=== PATIENT | female | born 1960 | race Two or more races ===

== ENCOUNTER 2020-04-10 01:10 | Inpatient (IN) | payer MEDICAID ==
[~2020-04-10] VITALS: Ht 167.6 cm; Wt 81.6 kg
[2020-04-10] VITALS (7 sets, daily range): BP systolic 106–147; BP diastolic 63–94
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
--- NOTE | 2020-04-10 01:25 | NUR ---
ED Nurse Note: ERMD at bedside.
--- NOTE | 2020-04-10 01:27 | Emergency Room Report ---
History of Present Illness General Chief Complaint: Nausea, Vomiting, and Diarrhea Source: Patient Present Illness HPI 60-year-old -Ang[place] female with past medical history of hepatitis C (from previous blood transfusion), anemia, (last blood transfusion in 1994) presents by ambulance with chief complaint of coffee-ground emesis x3 days. 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 Also endorses dark bloody stools for the past 3 days. She denies trauma, chest pain, recent endoscopy/colonoscopy, blood thinners, headache, back pain, hemoptysis, cough, fevers, chills, dysuria, hematuria or any other symptoms She denies alcohol abuse or IV drug use The patient's symptoms were gradual onset, severity was moderate, duration since 3 days. Quality: Coffee-ground Past medical history: Hepatitis C, anemia Past surgical history: Hysterectomy, bilateral hip ORIF Smoking: Denies Alcohol use: Denies Drug use: Denies Review of systems: CONST: No fevers ++ chills, No night sweats PULMONARY: No productive cough, No shortness of breath CARDIAC: No chest pain, No palpitations GI: ++ vomiting, No diarrhea , ++ melena_denies_BRBPR : No dysuria, No hematuria, No discharge NEURO: No new_focal_weakness_or_numbness, No confusion, No vision changes 14 point Review of Systems is otherwise negative except per HPI Physical Exam: GENERAL: Awake_alert_ nontoxic, no acute distress Spo2 98% on RA -normal. Shirt is covered in coffee-ground emesis Actively vomiting clear substance ~100ml EYES: Scleral icterus. Extraocular muscles are intact. Conjunctivae clear. Lids without swelling ENT: External nose and ear normal_in_appearance. Oropharynx clear. Head_atraumatic, Moist_oral_mucosa NECK: No JVD. No meningismus. No thyromegaly. Supple. Trachea midline RESP: Normal respiratory effort. Symmetric rise. No stridor. Clear_to_auscultation_No_rales_No_wheezes CARDIAC: Tachycardic and regular rhytm. No_significant pedal edema. ABDOMEN: Soft. Nondistended. Nontender_No_rebound_or_guarding. MSK: Normal muscle tone, without rigidity. Extremities without asymmetric deformity or swelling. No asterixis SKIN: Warm and dry. No visible cyanosis or pallor NEUROLOGIC: Alert, oriented x3. Motor_and_sensation_grossly_intact. No truncal ataxia. Gait_normal Psych: Normal mood and affect, normal judgment and insight - COORDINATION OF CARE Case was discussed with: Patient , Patient's Physician Any labs and imaging that were ordered were interpreted as part of the medical decision making: Medical Decision Making/Plan: Differential diagnosis includes upper GI bleed from bleeding peptic ulcer, bleeding duodenal ulcer, gastritis, esophageal varices, gastric varices, among others. Given the possibility of a bleeding peptic ulcer, Protonix IV was immediately started. Because of hx of Hep C, the patient is at risk for portal hypertension and varices from cirrhosis, so octreotide IV was also started and Ceftriaxone IV also given. Because the patients hemoglobin is stable, emergent transfusion was not started; however, the patient will need to be admitted for serial hemoglobin checks, and if downtrending, transfusion may be indicated at a later time. The patient does not require any emergent anticoagulation reversal at this time point. CT shows hiatal hernia. No abdominal free fluid. Doubt incarcerated hernia. Patient is protecting their airway, no active vomiting, no need for NG tube or intubation at this time. The patient is currently hemodynamically stable, and stable for transfer to the floor at this time. @[address] Thomas, and reviewed the patients presentation, workup, results, and treatment. They will admit the patient for further care and evaluation, and assume care of the patient at this time. 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 COVID-19 Screening: Negative COVID-19 COVID-19 Testing Source: 04/04/20 Patient History Last Menstrual Period: n/a Nursing Documentation-[facility] Past Medical History: No History, Except For Hx Asthma: Yes - asthma Physical Exam Vital Signs Date Time Temp Pulse Resp B/P (MAP) Pulse Ox O2 Delivery O2 Flow Rate FiO2 04/10/20 01:10 97.5 108 18 140/94 (109) 98 Room Air Sp02 EP Interpretation: reviewed, normal Medical Decision Making Diagnostic Impression: Primary Impression: GI bleed Additional Impressions: Hepatitis C Anemia Hematemesis Melena Kidney stones Hiatal hernia EKG Diagnostic Results THA [facility] 12-lead EKG (interpreted by me) Time: 013 Indication: Rhythm analysis Tracing visualized and Interpreted by me. Rhythm: Normal sinus rhythm Rate: 100 bpm QTc: 402 Morphology: No_significant_ST_elevations_or_depressions, No STEMI Impression: Normal_sinus_rhythm_without_significant_abnormality Rhythm Strip Diag. Results Rhythm Strip Time: 01:31 EP Interpretation: yes Rate: 98 Rhythm: NSR, no PVC's, no ectopy CT/MRI/US Diagnostic Results CT/MRI/US Diagnostic Results : Impression CT Abdomen and Pelvis Without Intravenous Contrast FINDINGS: Lung bases: Mild atelectasis at the lung bases. Mediastinum: Moderate hiatal hernia, which contains a proximal stomach. ABDOMEN: Liver: Unremarkable. Gallbladder and bile ducts: Unremarkable. No calcified stones. No ductal dilation. Pancreas: Unremarkable. No ductal dilation. Spleen: Unremarkable. No splenomegaly. Adrenals: Unremarkable. No mass. Kidneys and ureters: Multiple, small nonobstructing right mid and lower pole renal calculi, measuring 4 mm, 3 mm, and 1 mm. No hydronephrosis. No obstructive uropathy. Stomach and bowel: Noncontrast exam and therefore evaluation for gastrointestinal hemorrhage is limited. There is hyperdensity within the gastric lumen which may represent hyperdense ingested contents; however, blood products cannot be excluded, given the history of hematemesis. Consider correlation with upper GI endoscopy. Diverticulosis, without acute diverticulitis. No small bowel obstruction. PELVIS: Appendix: Normal appendix. Bladder: Unremarkable. No stones. Reproductive: Unremarkable as visualized. ABDOMEN and PELVIS: Intraperitoneal space: Unremarkable. No free air. No significant fluid collection. Bones/joints: Status post open reduction internal fixation of the bilateral hips with intramedullary rods in the bilateral femurs. Bilateral lumbosacral tra nsitional vertebrae. Diffuse osseous demineralization and degenerative changes of the spine. Soft tissues: Unremarkable. Vasculature: Unremarkable. No abdominal aortic aneurysm. Lymph nodes: Unremarkable. No enlarged lymph nodes. IMPRESSION: 1. Noncontrast exam and therefore evaluation for gastrointestinal hemorrhage is limited. There is hyperdensity within the gastric lumen which may represent hyperdense ingested contents; however, blood products cannot be excluded, given the history of hematemesis. Consider correlation with upper GI endoscopy. 2. Moderate hiatal hernia, which contains a proximal stomach. 3. Multiple, small nonobstructing right mid and lower pole renal calculi, measuring 4 mm, 3 mm, and 1 mm. No hydronephrosis. No obstructive uropathy. 4. Diverticulosis, without acute diverticulitis. No small bowel obstruction. Normal appendix. 5. Status post open reduction internal fixation of the bilateral hips with intramedullary rods in the bilateral femurs. Reevaluation Time: 03:00 Last Vital Signs Date Time Temp Pulse Resp B/P (MAP) Pulse Ox O2 Delivery O2 Flow Rate FiO2 04/10/20 01:10 97.5 108 18 140/94 (109) 98 Room Air Status: improved Disposition: ADMITTED INPATIENT Admit Decision Time: 03:00 Condition: Stable Daria Gray D.O. Apr 10, 2020 01:27
[2020-04-10] MEDS ORDERED: Octreotide Acetate 500 MCG in Sodium Chloride 499 ML IV SCH (01:30)
[2020-04-10] MEDS ORDERED: SandoSTATIN 50mcg Inj IVP ONE (01:30)
[2020-04-10] MEDS ORDERED: Pantoprazole Inj IV ONE (01:30)
[2020-04-10] MEDS ORDERED: cefTRIAXone 1 GM in NS 55 ML IV ONE (01:30)
--- NOTE | 2020-04-10 01:30 | NUR ---
ED Nurse Note: Pt taken to CT
--- NOTE | 2020-04-10 02:00 | NUR ---
ED Nurse Note: pt returned from CT in stable condition.
[2020-04-10 02:29] LABS: HEMATOCRIT 40.1 % (37.0-47.0); HEMOGLOBIN 14.6 G/DL (12.0-16.0); MEAN CORPUSCULAR VOLUME 84 FL (80-99); PLATELET COUNT 226 K/UL (150-450); RED BLOOD COUNT 4.79 M/UL (4.20-5.40); RED CELL DISTRIBUTION WIDTH 13.4 % (11.6-14.8); WHITE BLOOD COUNT 5.9 K/UL (4.8-10.8)
--- NOTE | 2020-04-10 02:32 | NUR ---
ED Nurse Note: IV line iniated, blood drawn and sent to lab. All medications administered, pt tolerated well no ss of distress noted. will continue to monitor.
[2020-04-10 02:42] LABS: ANION GAP 6 mmol/L (5-15); BLOOD UREA NITROGEN 15 mg/dL (7-18); CALCIUM 8.6 MG/DL (8.5-10.1); CARBON DIOXIDE 29 MMOL/L (21-32); CHLORIDE 105 MMOL/L (98-107); CREATININE 0.9 MG/DL (0.55-1.30); POTASSIUM 4.2 MMOL/L (3.5-5.1); SODIUM 140 MMOL/L (136-145)
[2020-04-10 02:47] LABS: ALANINE AMINOTRANSFERASE 24 U/L (12-78); ALBUMIN 3.5 G/DL (3.4-5.0); ALBUMIN/GLOBULIN RATIO 0.9 (1.0-2.7); ALKALINE PHOSPHATASE 91 U/L (46-116); ASPARTATE AMINO TRANSFERASE 25 U/L (15-37); BILIRUBIN,TOTAL 0.6 MG/DL (0.2-1.0)
--- NOTE | 2020-04-10 02:56 | Diagnostic Imaging Report ---
EXAM: CT Abdomen and Pelvis Without Intravenous Contrast CLINICAL HISTORY: ABD PAIN TECHNIQUE: Axial computed tomography images of the abdomen and pelvis without intravenous contrast. CTDI is 8.60 mGy and DLP is 442.60 mGy-cm. One or more of the following dose reduction techniques were used: automated exposure control, adjustment of the mA and/or kV according to patient size, use of iterative reconstruction technique. COMPARISON: No relevant prior studies available. FINDINGS: Lung bases: Mild atelectasis at the lung bases. Mediastinum: Moderate hiatal hernia, which contains a proximal stomach. ABDOMEN: Liver: Unremarkable. Gallbladder and bile ducts: Unremarkable. No calcified stones. No ductal dilation. Pancreas: Unremarkable. No ductal dilation. Spleen: Unremarkable. No splenomegaly. Adrenals: Unremarkable. No mass. Kidneys and ureters: Multiple, small nonobstructing right mid and lower pole renal calculi, measuring 4 mm, 3 mm, and 1 mm. No hydronephrosis. No obstructive uropathy. Stomach and bowel: Noncontrast exam and therefore evaluation for gastrointestinal hemorrhage is limited. There is hyperdensity within the gastric lumen which may represent hyperdense ingested contents; however, blood products cannot be excluded, given the history of hematemesis. Consider correlation with upper GI endoscopy. Diverticulosis, without acute diverticulitis. No small bowel obstruction. PELVIS: Appendix: Normal appendix. Bladder: Unremarkable. No stones. Reproductive: Unremarkable as visualized. ABDOMEN and PELVIS: Intraperitoneal space: Unremarkable. No free air. No significant fluid collection. Bones/joints: Status post open reduction internal fixation of the bilateral hips with intramedullary rods in the bilateral femurs. Bilateral lumbosacral transitional vertebrae. Diffuse osseous demineralization and degenerative changes of the spine. Soft tissues: Unremarkable. Vasculature: Unremarkable. No abdominal aortic aneurysm. Lymph nodes: Unremarkable. No enlarged lymph nodes. IMPRESSION: 1. Noncontrast exam and therefore evaluation for gastrointestinal hemorrhage is limited. There is hyperdensity within the gastric lumen which may represent hyperdense ingested contents; however, blood products cannot be excluded, given the history of hematemesis. Consider correlation with upper GI endoscopy. 2. Moderate hiatal hernia, which contains a proximal stomach. 3. Multiple, small nonobstructing right mid and lower pole renal calculi, measuring 4 mm, 3 mm, and 1 mm. No hydronephrosis. No obstructive uropathy. 4. Diverticulosis, without acute diverticulitis. No small bowel obstruction. Normal appendix. 5. Status post open reduction internal fixation of the bilateral hips with intramedullary rods in the bilateral femurs.
[2020-04-10 03:07] LABS: APPEARANCE,URINE CLEAR; BILIRUBIN, URINE NEGATIVE (NEGATIVE); GLUCOSE, URINE (UA) NEGATIVE (NEGATIVE); KETONES,URINE NEGATIVE (NEGATIVE); LEUKOCYTE ESTERASE ,URINE 3+ (NEGATIVE); NITRITE,URINE NEGATIVE (NEGATIVE); PH,URINE 6.5 (4.5-8.0); PROTEIN,URINE 1+ (NEGATIVE); UROBILINOGEN,URINE 1 MG/DL (0.0-1.0)
--- NOTE | 2020-04-10 03:15 | NUR ---
ED Nurse Note: pt vomited total of 750ml of coffee ground emesis in total. ERMD aware. awaiting further orders.
[2020-04-10 03:23] LABS: COLOR,URINE YELLOW
--- NOTE | 2020-04-10 03:24 | NUR ---
ED Nurse Note: Repeat blood work sent to lab
[2020-04-10 04:26] LABS: HEMATOCRIT 41.4 % (37.0-47.0); MEAN CORPUSCULAR VOLUME 90 FL (80-99); PLATELET COUNT 212 K/UL (150-450); RED BLOOD COUNT 4.61 M/UL (4.20-5.40); RED CELL DISTRIBUTION WIDTH 11.8 % (11.6-14.8); WHITE BLOOD COUNT 5.2 K/UL (4.8-10.8)
--- NOTE | 2020-04-10 05:39 | NUR ---
ED Nurse Note: pt resting in bed, VSS no ss of distress noted. will continue to monitor.
--- NOTE | 2020-04-10 07:00 | NUR ---
HAND-OFF: Report given to karen olivier.
--- NOTE | 2020-04-10 07:46 | NUR ---
ED Nurse Note: Report given to Iraj on tele.
--- NOTE | 2020-04-10 08:33 | NUR ---
TRANSFER TO FLOOR: Patient transferred to as ordered, per ER MD. Report given to HARJIT Galo. Belongings and medications Sent with pt. Vital signs stable as documented. Pt breathing is unlabored on RA.
--- NOTE | 2020-04-10 08:33 | NUR ---
NURSE NOTES: Received ahdn-off report from [facility] ED. Patient in stable condiiton, vital signs WNL, notified Dr. Thomas of admission and requested pain medication, awaiting response. Patient breathing even and unlabored, resp 20, spO2 95%, BP 130/76. quality assurance monitor chassis in place, bed in lowest and locked position, high fowlers position, suction bedside prepared for n/v.
--- NOTE | 2020-04-10 08:50 | NUR ---
NURSE NOTES: Called Dr. Beckham regarding admission again. Awaiting response.
--- NOTE | 2020-04-10 09:26 | NUR ---
NURSE NOTES: Called Dr. Thomas regarding admission orders and left a voicemail. Awaiting Dr. Thomas's response.
[2020-04-10] MEDS: Morphine Sulfate 4mg/ml Inj (IV USE ONLY) IVP PRN ×3 (11:07→20:49)
--- NOTE | 2020-04-10 11:49 | NUR ---
NURSE NOTES: Notified Dr. Thomas whether he would like to continue ocreotide, awaiting response.
--- NOTE | 2020-04-10 11:53 | History and Physical ---
History of Present Illness General Date patient seen: Apr 10, 2020 Reason for Hospitalization: Nausea, Vomiting, and Diarrhea Present Illness HPI 60 years old aa f lives at came to ed for vomiting blood nfor 2-3 days [id number] with nausea.pt has been taking asa and ibuprofen at . denies cp, palpitation. no fever no chills mild abdo discomfort. no wt loss Allergies: Coded Allergies: No Known Allergies (Unverified , 04/10/20) COVID-19 Screening Contact w/high risk pt: No Experienced COVID-19 symptoms?: Yes Coronavirus symptoms experienc: Nausea/Vomiting Patient History Healthcare decision maker Resuscitation status Advanced Directive on File Review of Systems Constitutional: Reports: no symptoms Eye: Reports: no symptoms ENT: Reports: no symptoms Respiratory: Reports: no symptoms Cardiovascular: Reports: no symptoms Gastrointestinal: Reports: abdominal pain, nausea, vomiting, hematemesis Genitourinary: Reports: no symptoms Musculoskeletal: Reports: no symptoms Skin: Reports: no symptoms Psychiatric: Reports: no symptoms Neurological: Reports: no symptoms Endocrine: Reports: no symptoms Hematologic/Lymphatic: Reports: no symptoms Physical Exam General Appearance: no apparent distress Lines, tubes and drains: peripheral HEENT: atraumatic, PERRL Neck: non-tender, supple Respiratory/Chest: lungs clear Cardiovascular/Chest: regular rhythm Abdomen: non tender, soft, no organomegaly, no mass Genitourinary/Rectal: normal genital exam Extremities: non-tender Skin Exam: warm/dry Neurologic: strength and conditioning coach II-XII grossly normal Musculoskeletal: normal muscle bulk Last 24 Hour Vital Signs Date Time Temp Pulse Resp B/P (MAP) Pulse Ox O2 Delivery O2 Flow Rate FiO2 04/10/20 08:33 87 04/10/20 08:33 97.5 84 20 130/76 (94) 95 04/10/20 08:25 98.6 85 20 132/90 96 Room Air 04/10/20 05:40 97.5 83 16 106/63 100 Room Air 04/10/20 03:25 97.5 89 16 123/84 100 Room Air 04/10/20 01:20 97.5 108 18 140/94 98 Room Air 04/10/20 01:10 97.5 108 18 140/94 (109) 98 Room Air Intake and Output 04/09/20 04/10/20 19:00 07:00 Intake Total 0 ml Output Total 750 ml Balance -750 ml Intake Oral 0 ml Output Emesis 750 ml Laboratory Tests Test 04/10/20 01:20 04/10/20 03:12 04/10/20 03:43 White Blood Count 5.9 K/UL (4.8-10.8) 5.2 K/UL (4.8-10.8) Red Blood Count 4.79 M/UL (4.20-5.40) 4.61 M/UL (4.20-5.40) Hemoglobin 14.6 G/DL (12.0-16.0) 14.0 G/DL (12.0-16.0) Hematocrit 40.1 % (37.0-47.0) 41.4 % (37.0-47.0) Mean Corpuscular Volume 84 FL (80-99) 90 FL (80-99) Mean Corpuscular Hemoglobin 30.5 PG (27.0-31.0) 30.4 PG (27.0-31.0) Mean Corpuscular Hemoglobin Concent 36.4 G/DL (32.0-36.0) H 33.9 G/DL (32.0-36.0) Red Cell Distribution Width 13.4 % (11.6-14.8) 11.8 % (11.6-14.8) Platelet Count 226 K/UL (150-450) 212 K/UL (150-450) Mean Platelet Volume 7.1 FL (6.5-10.1) 6.8 FL (6.5-10.1) Neutrophils (%) (Auto) % (45.0-75.0) % (45.0-75.0) Lymphocytes (%) (Auto) % (20.0-45.0) % (20.0-45.0) Monocytes (%) (Auto) % (1.0-10.0) % (1.0-10.0) Eosinophils (%) (Auto) % (0.0-3.0) % (0.0-3.0) Basophils (%) (Auto) % (0.0-2.0) % (0.0-2.0) Prothrombin Time 11.0 SEC (9.30-11.50) Prothromb Time International Ratio 1.0 (0.9-1.1) Activated Partial Thromboplast Time 28 SEC (23-33) Sodium Level 140 MMOL/L (136-145) Potassium Level 4.2 MMOL/L (3.5-5.1) Chloride Level 105 MMOL/L (98-107) Carbon Dioxide Level 29 MMOL/L (21-32) Anion Gap 6 mmol/L (5-15) Blood Urea Nitrogen 15 mg/dL (7-18) Creatinine 0.9 MG/DL (0.55-1.30) Estimat Glomerular Filtration Rate > 60 mL/min (>60) Glucose Level 118 MG/DL (74-106) H Calcium Level 8.6 MG/DL (8.5-10.1) Total Bilirubin 0.6 MG/DL (0.2-1.0) Aspartate Amino Transf (AST/SGOT) 25 U/L (15-37) Alanine Aminotransferase (ALT/SGPT) 24 U/L (12-78) Alkaline Phosphatase 91 U/L (46-116) Troponin I 0.000 ng/mL (0.000-0.056) Total Protein 7.6 G/DL (6.4-8.2) Albumin 3.5 G/DL (3.4-5.0) Globulin 4.1 g/dL Albumin/Globulin Ratio 0.9 (1.0-2.7) L Lipase 114 U/L (73-393) Urine Color Yellow Urine Appearance Clear Urine pH 6.5 (4.5-8.0) Urine Specific [place] 1.015 (1.005-1.035) Urine Protein 1+ (NEGATIVE) H Urine Glucose (UA) Negative (NEGATIVE) Urine Ketones Negative (NEGATIVE) Urine Blood 1+ (NEGATIVE) H Urine Nitrite Negative (NEGATIVE) Urine Bilirubin Negative (NEGATIVE) Urine Urobilinogen 1 MG/DL (0.0-1.0) H Urine Leukocyte Esterase 3+ (NEGATIVE) H Urine RBC 0-2 /HPF (0 - 2) Urine WBC 30-40 /HPF (0 - 2) H Urine Squamous Epithelial Cells Few /LPF (NONE/OCC) Urine Bacteria Few /HPF (NONE) Osmolality 301 mOsm/kg (297-317) Salicylates Level 2.4 ug/mL (2.8-20) L Acetaminophen Level < 2 MCG/ML (10-30) L Height (Feet): 5 Height (Inches): 6.00 Weight (Pounds): 165 Medications Current Medications Medications (Trade) Dose Ordered Sig/Jessie Route PRN Reason Start Time Stop Time Status Last Admin Dose Admin Morphine Sulfate (Morphine Sulfate) 4 mg Q4H PRN IVP For Pain 04/10/20 10:30 04/17/20 10:29 04/10/20 11:07 Ondansetron HCl (Zofran) 4 mg Q4H PRN IVP Nausea & Vomiting 04/10/20 10:30 05/10/20 10:29 04/10/20 11:35 Sodium Chloride 1,000 ml @ 100 mls/hr Q10H IV 04/10/20 11:00 05/10/20 10:59 04/10/20 11:35 Assessment/Plan Status: doing well Diagnosis [place] I: 1 ug i bleeding 2 abdo pain 3 djd gi consult cosme hartman progress Akbar Thomas MD Apr 10, 2020 11:53
--- NOTE | 2020-04-10 12:13 | General Progress Note ---
Subjective ROS Limited/Unobtainable: Yes Allergies: Coded Allergies: No Known Allergies (Unverified , 04/10/20) Objective Last 24 Hour Vital Signs Date Time Temp Pulse Resp B/P (MAP) Pulse Ox O2 Delivery O2 Flow Rate FiO2 04/10/20 11:37 97.5 04/10/20 08:33 87 04/10/20 08:33 97.5 84 20 130/76 (94) 95 04/10/20 08:25 98.6 85 20 132/90 96 Room Air 04/10/20 05:40 97.5 83 16 106/63 100 Room Air 04/10/20 03:25 97.5 89 16 123/84 100 Room Air 04/10/20 01:20 97.5 108 18 140/94 98 Room Air 04/10/20 01:10 97.5 108 18 140/94 (109) 98 Room Air Intake and Output 04/09/20 04/10/20 19:00 07:00 Intake Total 0 ml Output Total 750 ml Balance -750 ml Intake Oral 0 ml Output Emesis 750 ml Laboratory Tests 04/10/20 01:20: White Blood Count 5.9, Red Blood Count 4.79, Hemoglobin 14.6, Hematocrit 40.1, Mean Corpuscular Volume 84, Mean Corpuscular Hemoglobin 30.5, Mean Corpuscular Hemoglobin Concent 36.4H, Red Cell Distribution Width 13.4, Platelet Count 226, Mean Platelet Volume 7.1, Neutrophils (%) (Auto) , Lymphocytes (%) (Auto) , Monocytes (%) (Auto) , Eosinophils (%) (Auto) , Basophils (%) (Auto) , Prothrombin Time 11.0, Prothromb Time International Ratio 1.0, Activated Partial Thromboplast Time 28, Sodium Level 140, Potassium Level 4.2, Chloride Level 105, Carbon Dioxide Level 29, Anion Gap 6, Blood Urea Nitrogen 15, Creatinine 0.9, Estimat Glomerular Filtration Rate > 60, Glucose Level 118H, Calcium Level 8.6, Total Bilirubin 0.6, Aspartate Amino Transf (AST/SGOT) 25, Alanine Aminotransferase (ALT/SGPT) 24, Alkaline Phosphatase 91, Troponin I 0.000, Total Protein 7.6, Albumin 3.5, Globulin 4.1, Albumin/Globulin Ratio 0.9L, Lipase 114 04/10/20 03:12: Urine Color Yellow, Urine Appearance Clear, Urine pH 6.5, Urine Specific [place] 1.015, Urine Protein 1+H, Urine Glucose (UA) Negative, Urine Ketones Negative, Urine Blood 1+H, Urine Nitrite Negative, Urine Bilirubin Negative, Urine Urobilinogen 1H, Urine Leukocyte Esterase 3+H, Urine RBC 0-2, Urine WBC 30-40H, Urine Squamous Epithelial Cells Few, Urine Bacteria Few 04/10/20 03:43: White Blood Count 5.2, Red Blood Count 4.61, Hemoglobin 14.0, Hematocrit 41.4, Mean Corpuscular Volume 90, Mean Corpuscular Hemoglobin 30.4, Mean Corpuscular Hemoglobin Concent 33.9, Red Cell Distribution Width 11.8, Platelet Count 212, Mean Platelet Volume 6.8, Neutrophils (%) (Auto) , Lymphocytes (%) (Auto) , Monocytes (%) (Auto) , Eosinophils (%) (Auto) , Basophils (%) (Auto) , Osmolality 301, Salicylates Level 2.4L, Acetaminophen Level < 2L Height (Feet): 5 Height (Inches): 6.00 Weight (Pounds): 165 General Appearance: alert EENT: normal ENT inspection Neck: supple Cardiovascular: normal rate Respiratory/Chest: decreased breath sounds Abdomen: normal bowel sounds, non tender, soft Extremities: non-tender Assessment/Plan Status: doing well Assessment/Plan: h/o of hep C with normal LFTS c/o GI bleed for 3 days with ghb of 14!! dc octreotide ppi po bid stool ob advance siet EGD if needed El Geller MD Apr 10, 2020 12:13
--- NOTE | 2020-04-10 13:47 | NUR ---
CASE MANAGEMENT:REVIEW BIBA FROM [facility] CC: BLOOD TINGED VOMIT AND STOOLS SI: GIB 97.5 108 18 140/94 98% ON RA H/H=14.6/40.1 GLUCOSE+118 IS: IV ZOFRAN IV PROTONIX IV ROCEPHIN 1L NS BOLUS IV OCTREOTIDE OCTREOTIDE GTT : TO TELEMETRY
--- NOTE | 2020-04-10 15:03 | NUR ---
NURSE NOTES: Called and left a voicemail for Dr. Thomas at [phone] regarding [facility] emergency department fall sustained three weeks ago. Telephone ringing multiple times and no answer and no option to leave voicemail.
--- NOTE | 2020-04-10 15:04 | NUR ---
NURSE NOTES: Called Dr. Geller regarding recent fall sustained one week ago. [phone] answering service. Left a voicemail regarding newly expressed finding.
--- NOTE | 2020-04-10 15:10 | NUR ---
NURSE NOTES: Called Dr. Thomas again at [phone]. Received no answer.
--- NOTE | 2020-04-10 16:55 | NUR ---
NURSE HAND-OFF REPORT: Important Events on Shift: Patient stated that she sustained a fall hitting her hip, notified Dr. Thomas and gave the order of HIP xray left hip Patient Status: full code, stable condition Diet: regular Pending Orders: [] Pending Results/Labs:[] Pending MD notification:[] Latest Vital Signs: Temperature 97.7 , Pulse 83 , B/P 127 /75 , Respiratory Rate 20 , O2 SAT 95 , Room Air, O2 Flow Rate . Vital Sign Comment: [] EKG Rhythm: Sinus Rhythm Rhythm change?: N MD Notified?: - MD Response: Latest [place] Fall Score: 80 Fall Risk: High Risk Safety Measures: Call light , Bed Alarm Zone 2, Side Rails Side Rails x2, Bed position Low and Locked. Fall Precautions: Yellow Socks Yellow Gown Patient Fall Education Report given to HARJIT Balderas 4E.
--- NOTE | 2020-04-10 19:20 | NUR ---
NURSE HAND-OFF: Important Events on Shift:[transfer to ] Patient Status: stable Diet: regular Pending Orders: Pending Results/Labs: Pending MD notification: Latest Vital Signs: Temperature 97.7 , Pulse 83 , B/P 127 /75 , Respiratory Rate 20 , O2 SAT 95 , Room Air, O2 Flow Rate . Vital Sign Comment: stable Latest Meade Fall Score: 80 Fall Risk: High Risk Safety Measures: Call light , Bed Alarm Zone 2, Side Rails Side Rails x2, Bed position Low and Locked. Fall Precautions: Yellow Socks Yellow Gown Patient Fall Education Report given to Darcy LOMBARDI.
--- NOTE | 2020-04-10 19:30 | NUR ---
NURSE NOTES: Received report from karen portillo. patient on bed, awake and verbally responsive. on room air. no sob. denies any pain or discomfort. with right external jugular iv access, 18 gauge running ivf ordered by . uses bedpan. reiterated to call and ask for assistance.call light and light button within easy reach . bed alarm on. bed locked and in lowest position. will continue plan of care.
[2020-04-11] VITALS: BP 122/75
[2020-04-11] MEDS: Morphine Sulfate 4mg/ml Inj (IV USE ONLY) IVP PRN ×3 (03:30→22:53)
[2020-04-11 04:00] VITALS: BP 118/64
--- NOTE | 2020-04-11 05:50 | NUR ---
NURSE HAND-OFF: Important Events on Shift: pain mngt; safety; Patient Status: stable Diet: regular Pending Orders: xray left hip uni Pending Results/Labs: Pending MD notification: Latest Vital Signs: Temperature 97.8 , Pulse 64 , B/P 118 /64 , Respiratory Rate 19 , O2 SAT 100 , Room Air, O2 Flow Rate . Vital Sign Comment: Latest Meade Fall Score: 80 Fall Risk: High Risk Safety Measures: Call light Within Reach, Bed Alarm Zone 1, Side Rails Side Rails x2, Bed position Low and Locked. Fall Precautions: Yellow Socks Yellow Gown Door Sign Patient Fall Education Addendum: 04/11/20 at 0734 by Monalisa Leonardo RN HAND-OFF: Report given to karen meek.
[2020-04-11 07:26] LABS: BASOPHILS % (AUTO) 0.6 % (0.0-2.0); EOSINOPHILS % (AUTO) 0.1 % (0.0-3.0); HEMATOCRIT 39.5 % (37.0-47.0); HEMOGLOBIN 14.1 G/DL (12.0-16.0); LYMPHOCYTES % (AUTO) 10.5 % (20.0-45.0); MEAN CORPUSCULAR VOLUME 86 FL (80-99); NEUTROPHILS % (AUTO) 82.7 % (45.0-75.0); PLATELET COUNT 177 K/UL (150-450); RED BLOOD COUNT 4.59 M/UL (4.20-5.40); RED CELL DISTRIBUTION WIDTH 12.7 % (11.6-14.8); WHITE BLOOD COUNT 6.4 K/UL (4.8-10.8)
[2020-04-11 07:36] LABS: ALANINE AMINOTRANSFERASE 28 U/L (12-78); ALBUMIN 3.3 G/DL (3.4-5.0); ALBUMIN/GLOBULIN RATIO 0.9 (1.0-2.7); ALKALINE PHOSPHATASE 68 U/L (46-116); AMYLASE 77 U/L (25-115); ANION GAP 10 mmol/L (5-15); ASPARTATE AMINO TRANSFERASE 27 U/L (15-37); BILIRUBIN,TOTAL 0.5 MG/DL (0.2-1.0); BLOOD UREA NITROGEN 10 mg/dL (7-18); CALCIUM 8.4 MG/DL (8.5-10.1); CARBON DIOXIDE 25 MMOL/L (21-32); CHLORIDE 103 MMOL/L (98-107); CREATININE 0.8 MG/DL (0.55-1.30); POTASSIUM 3.9 MMOL/L (3.5-5.1); SODIUM 138 MMOL/L (136-145)
[2020-04-11 08:00] VITALS: BP 122/75
--- NOTE | 2020-04-11 09:19 | NUR ---
NURSE NOTES: Patient is awake and alert and oriented,respirations unlabored.IV fluids infusing as ordered. patient has temp of 102.4.DR Thomas aware with order received to give tylenol for fever,tylenol given as ordered.Call light within reach.
--- NOTE | 2020-04-11 10:26 | General Progress Note ---
Subjective ROS Limited/Unobtainable: Yes Allergies: Coded Allergies: No Known Allergies (Unverified , 04/10/20) Objective Last 24 Hour Vital Signs Date Time Temp Pulse Resp B/P (MAP) Pulse Ox O2 Delivery O2 Flow Rate FiO2 04/11/20 09:00 102.4 04/11/20 08:00 101.4 91 21 122/75 (91) 100 04/11/20 04:00 97.5 04/11/20 04:00 97.8 64 19 118/64 (82) 100 04/11/20 00:00 97.5 71 20 122/75 (91) 96 04/10/20 21:19 97.7 04/10/20 21:00 Room Air 04/10/20 20:00 97.8 82 20 130/82 (98) 99 04/10/20 16:00 97.7 83 20 127/75 (92) 95 04/10/20 15:22 97.4 04/10/20 12:00 97.4 82 18 147/84 (105) 95 04/10/20 12:00 77 04/10/20 11:37 97.5 04/10/20 11:01 Room Air Intake and Output 04/10/20 04/11/20 19:00 07:00 Intake Total 350 ml 420 ml Balance 350 ml 420 ml Intake Oral 350 ml 420 ml # Voids 1 2 Laboratory Tests 04/11/20 05:59: White Blood Count 6.4, Red Blood Count 4.59, Hemoglobin 14.1, Hematocrit 39.5, Mean Corpuscular Volume 86, Mean Corpuscular Hemoglobin 30.7, Mean Corpuscular Hemoglobin Concent 35.6, Red Cell Distribution Width 12.7, Platelet Count 177, Mean Platelet Volume 7.5, Neutrophils (%) (Auto) 82.7H, Lymphocytes (%) (Auto) 10.5L, Monocytes (%) (Auto) 6.0, Eosinophils (%) (Auto) 0.1, Basophils (%) (Auto) 0.6, Sodium Level 138, Potassium Level 3.9, Chloride Level 103, Carbon Dioxide Level 25, Anion Gap 10, Blood Urea Nitrogen 10, Creatinine 0.8, Estimat Glomerular Filtration Rate > 60, Glucose Level 72L, Calcium Level 8.4L, Total Bilirubin 0.5, Aspartate Amino Transf (AST/SGOT) 27, Alanine Aminotransferase (ALT/SGPT) 28, Alkaline Phosphatase 68, Total Protein 7.0, Albumin 3.3L, Globulin 3.7, Albumin/Globulin Ratio 0.9L, Amylase Level 77, Lipase 181 04/11/20 08:45: Hepatitis A IgM Antibody [Pending], Hepatitis B Surface Antigen [Pending], Hepatitis B Core IgM Antibody [Pending], Hepatitis C Antibody [Pending] Height (Feet): 5 Height (Inches): 6.00 Weight (Pounds): 180 General Appearance: alert EENT: normal ENT inspection Neck: supple Cardiovascular: normal rate Respiratory/Chest: lungs clear Abdomen: normal bowel sounds, non tender, soft Extremities: non-tender Assessment/Plan Status: doing well Assessment/Plan: h/o of hep C with normal LFTS c/o GI bleed for 3 days with HGB of 14!! ppi po bid stool ob on cardiac diet EGD if needed El Geller MD Apr 11, 2020 10:26
--- NOTE | 2020-04-11 11:35 | Diagnostic Imaging Report ---
EXAM: X-RAY left femur CLINICAL HISTORY: Leg pain. COMPARISON: None FINDINGS: Total of 4 views of the left femur were obtained. There is an intramedullary lesia traversing old fracture deformity of the mid femoral shaft. Proximal and distal fixation screws also noted. No acute fracture lucency seen. Joint spaces are unremarkable. Surrounding soft tissue is normal. IMPRESSION: FIXATION HARDWARE OF OLD MID FEMORAL SHAFT FRACTURE. NO ACUTE FRACTURE.
[2020-04-11 12:00] VITALS: BP 100/48
--- NOTE | 2020-04-11 12:00 | Consultation ---
DATE OF CONSULTATION: 04/11/2020 INFECTIOUS DISEASE CONSULTATION CONSULTING PHYSICIAN: Wilfrid Carvajal MD. REFERRING PHYSICIAN: Akbar Thomas MD. REASON FOR CONSULTATION: Fever. HISTORY OF PRESENTING ILLNESS: This is a 60-year-old lady with history of hepatitis C, who comes in with nausea, vomiting, abdominal pain along with fever and chills. There was a concern for cholecystitis and an Infectious Diseases consultation has been obtained for antibiotics. PAST MEDICAL HISTORY: 1. History of hepatitis C. 2. History of anemia. 3. History of hysterectomy. 4. History of bilateral hip ORIF. SOCIAL HISTORY: She used to be a smoker, she does not smoke anymore. She used to drink alcohol, she does not drink anymore. No history of drug use. FAMILY HISTORY: Noncontributory. REVIEW OF SYSTEMS: RESPIRATORY: She has fever and chills. No cough. No shortness of breath. No chest pain. CARDIAC: No chest pain. No palpitation. No dizziness. No syncope. GASTROINTESTINAL: She has nausea and vomiting. She complains of abdominal pain. No diarrhea. MEDICATIONS: As an inpatient, she is on MiraLAX, docusate, Tylenol, Protonix, Zofran, morphine. ALLERGIES: No known drug allergies. PHYSICAL EXAMINATION: VITAL SIGNS: Temperature 102.4, T-max of 102.4, pulse of 91, respiratory rate 21, blood pressure 122/75. O2 saturation of 100%. HEENT: Pupils are equally reactive to light and accommodation. Mouth appears clean without thrush. NECK: Supple. No adenopathy. No JVD. CARDIOVASCULAR: Regular rate and rhythm. No murmurs. LUNGS: Clear to auscultation bilaterally. No crackles. No wheezes. ABDOMEN: Soft. There is epigastric tenderness. No organomegaly. EXTREMITIES: No cyanosis, no clubbing, no edema. LABORATORY DATA: White count 6.4, hemoglobin 14.1, hematocrit 39.5, MCV 86, platelet count of 177,000, neutrophils of 82%. Sodium 138, potassium 3.9, chloride 103, bicarb 25, BUN 10, creatinine 0.8. Glucose of 72. Calcium 8.4. Total bilirubin 0.5, AST 27, ALT 28, alkaline phosphatase 68. Total protein 7, albumin 3.3. Amylase 77, lipase of 181. UA is showing [address] abdomen and pelvis showing moderate hiatal hernia, small obstructing right mid and lower pole renal calculi. No hydronephrosis. No obstructive uropathy. Diverticulosis without diverticulitis, status post open reduction and internal fixation of bilateral hips with medullary rods. ASSESSMENT: This is a 60-year-old lady with history of hepatitis C and anemia, who comes in with fever, chills, nausea, vomiting as well as abdominal pain and is found to have, 1. Urinary tract infection. 2. Right-sided nephrolithiasis. 3. History of hepatitis C. PLAN: 1. We will start the patient on Zosyn. 2. We will follow up cultures and adjust antibiotics accordingly. I would like to thank Dr. Thomas for this consultation. Wilfrid Carvajal M.D. DR: SURINDER JOB#: [id number] CC:
[2020-04-11] MEDS: Piperacillin/Tazobactam 3.375 GM in NS 110 ML IVPB SCH ×2 (13:14→20:52)
--- NOTE | 2020-04-11 14:31 | NUR ---
[employer]MI[employer] PL[employer]PHARM[employer] CASHIER SI: JIM Emma 102.4 HR 91 RR 18 B/P 100/48 RA 100% RIGHT HIP XRAY= NEGATIVE IS: IVF NS @ 100ML/HR ZOSYN IV MED/SURG STATUS
[2020-04-11 16:00] VITALS: BP 103/56
--- NOTE | 2020-04-11 16:04 | General Progress Note ---
Subjective Allergies: Coded Allergies: No Known Allergies (Unverified , 04/10/20) Subjective recurrent fever Objective Last 24 Hour Vital Signs Date Time Temp Pulse Resp B/P (MAP) Pulse Ox O2 Delivery O2 Flow Rate FiO2 04/11/20 12:00 99.9 04/11/20 12:00 99.9 90 18 100/48 (65) 100 04/11/20 09:00 Room Air 04/11/20 09:00 102.4 04/11/20 08:00 101.4 91 21 122/75 (91) 100 04/11/20 04:00 97.5 04/11/20 04:00 97.8 64 19 118/64 (82) 100 04/11/20 00:00 97.5 71 20 122/75 (91) 96 04/10/20 21:19 97.7 04/10/20 21:00 Room Air 04/10/20 20:00 97.8 82 20 130/82 (98) 99 Intake and Output 04/10/20 04/11/20 19:00 07:00 Intake Total 350 ml 420 ml Balance 350 ml 420 ml Intake Oral 350 ml 420 ml # Voids 1 2 Laboratory Tests 04/11/20 05:59: White Blood Count 6.4, Red Blood Count 4.59, Hemoglobin 14.1, Hematocrit 39.5, Mean Corpuscular Volume 86, Mean Corpuscular Hemoglobin 30.7, Mean Corpuscular Hemoglobin Concent 35.6, Red Cell Distribution Width 12.7, Platelet Count 177, Mean Platelet Volume 7.5, Neutrophils (%) (Auto) 82.7H, Lymphocytes (%) (Auto) 10.5L, Monocytes (%) (Auto) 6.0, Eosinophils (%) (Auto) 0.1, Basophils (%) (Auto) 0.6, Sodium Level 138, Potassium Level 3.9, Chloride Level 103, Carbon Dioxide Level 25, Anion Gap 10, Blood Urea Nitrogen 10, Creatinine 0.8, Estimat Glomerular Filtration Rate > 60, Glucose Level 72L, Calcium Level 8.4L, Total Bilirubin 0.5, Aspartate Amino Transf (AST/SGOT) 27, Alanine Aminotransferase (ALT/SGPT) 28, Alkaline Phosphatase 68, Total Protein 7.0, Albumin 3.3L, Globulin 3.7, Albumin/Globulin Ratio 0.9L, Amylase Level 77, Lipase 181 04/11/20 08:45: Hepatitis A IgM Antibody [Pending], Hepatitis B Surface Antigen [Pending], Hepatitis B Core IgM Antibody [Pending], Hepatitis C Antibody [Pending] Height (Feet): 5 Height (Inches): 6.00 Weight (Pounds): 180 General Appearance: alert EENT: PERRL/EOMI Neck: supple Cardiovascular: regular rhythm Respiratory/Chest: normal breath sounds Abdomen: non tender, soft Extremities: non-tender Assessment/Plan Status: doing well Assessment/Plan: 1 ugi bleeding 2 rec fever 3 cad 4 htn monitor fever id and gi on the case Akbar Thomas MD Apr 11, 2020 16:04
[2020-04-11] MEDS: Docusate 100mg cap ORAL SCH (17:32)
--- NOTE | 2020-04-11 18:30 | NUR ---
NURSE NOTES: Patient resting ,no complaint of pain at this time.patient received pain medication at 1719. IV fluids continue to infuse as ordered.Bed alarm farm operations technical director light within reach.
--- NOTE | 2020-04-11 19:25 | NUR ---
NURSE NOTES: Received report from Shelby LOMBARDI. Pt is calmly laying down in bed, no complaints of pain. VSS. NS running at 100 ml/hr. Bed locked and in lowest position, call light within reach.
--- NOTE | 2020-04-11 19:25 | NUR ---
NURSE HAND-OFF: MARCY RN Important Events on Shift:[medicated today for complaint of pain] Patient Status: Stable Diet: [Regular] Pending Orders: [] Pending Results/Labs:[] Pending MD notification:[] Latest Vital Signs: Temperature 98.7 , Pulse 69 , B/P 125 /77 , Respiratory Rate 20 , O2 SAT 93 , Room Air, O2 Flow Rate . Vital Sign Comment: [] Latest Meade Fall Score: 80 Fall Risk: High Risk Safety Measures: Call light Within Reach, Bed Alarm Zone 1, Side Rails Side Rails x2, Bed position Low and Locked. Fall Precautions: Yellow Socks Yellow Gown Door Sign y Patient Fall Education Report given to [].
[2020-04-11 20:00] VITALS: BP 103/58
[2020-04-11] MEDS: Miralax 17gm pkt ORAL SCH (20:52)
[2020-04-12] VITALS: BP 130/61
[2020-04-12 04:00] VITALS: BP 125/77
[2020-04-12] MEDS: Piperacillin/Tazobactam 3.375 GM in NS 110 ML IVPB SCH ×3 (04:17→20:23)
[2020-04-12] MEDS: Morphine Sulfate 4mg/ml Inj (IV USE ONLY) IVP PRN ×3 (05:53→20:24)
--- NOTE | 2020-04-12 07:21 | General Progress Note ---
Subjective ROS Limited/Unobtainable: No Allergies: Coded Allergies: No Known Allergies (Unverified , 04/10/20) Objective Last 24 Hour Vital Signs Date Time Temp Pulse Resp B/P (MAP) Pulse Ox O2 Delivery O2 Flow Rate FiO2 04/12/20 04:00 98.7 69 20 125/77 (93) 93 04/12/20 00:00 99.0 92 18 130/61 (84) 96 04/11/20 21:00 Room Air 04/11/20 20:00 99.2 81 18 103/58 (73) 96 04/11/20 16:00 98.4 85 19 103/56 (72) 95 04/11/20 12:00 99.9 04/11/20 12:00 99.9 90 18 100/48 (65) 100 04/11/20 09:00 Room Air 04/11/20 09:00 102.4 04/11/20 08:00 101.4 91 21 122/75 (91) 100 Intake and Output 04/11/20 04/12/20 19:00 07:00 Intake Total 1390.0 ml 377.5 ml Output Total 500 ml Balance 1390.0 ml -122.5 ml Intake Oral 480 ml 240 ml IV Total 910.0 ml 137.5 ml Output Urine Total 500 ml # Voids 2 2 Laboratory Tests 04/11/20 08:45: Hepatitis A IgM Antibody [Pending], Hepatitis B Surface Antigen [Pending], Hepatitis B Core IgM Antibody [Pending], Hepatitis C Antibody [Pending] Height (Feet): 5 Height (Inches): 6.00 Weight (Pounds): 180 General Appearance: no apparent distress EENT: normal ENT inspection Neck: supple Cardiovascular: normal rate Respiratory/Chest: decreased breath sounds Abdomen: normal bowel sounds, non tender, soft Extremities: non-tender Assessment/Plan Status: doing well Assessment/Plan: h/o of hep C with normal LFTS c/o GI bleed for 3 days with HGB of 14!! ppi po bid stool ob on cardiac diet EGD if needed add kay fu ID El Perea MD Apr 12, 2020 07:21
--- NOTE | 2020-04-12 07:43 | NUR ---
NURSE HAND-OFF: Important Events on Shift: No BM this shift, pain management Patient Status: Stable Diet: Regular Pending Orders: OB stool Pending Results/Labs: CBC, CMP Pending MD notification:N/A Latest Vital Signs: Temperature 98.7 , Pulse 69 , B/P 125 /77 , Respiratory Rate 20 , O2 SAT 93 , Room Air, O2 Flow Rate . Vital Sign Comment: Stable Latest Meade Fall Score: 80 Fall Risk: High Risk Safety Measures: Call light Within Reach, Bed Alarm Zone 1, Side Rails Side Rails x2, Bed position Low and Locked. Fall Precautions: Yellow Socks Yellow Gown Door Sign Patient Fall Education Report given to HARJIT Fernández.
--- NOTE | 2020-04-12 07:59 | NUR ---
NURSE NOTES: Patient awake, alert x4; on room air, no sing of distress and shortness of breath; no sing of chest pain; IV Right external Jugular NS 100cc running; side rails up x2, breaks engaged, bed at lowest position; call light within reach; will keep monitoring.
[2020-04-12 08:00] VITALS: BP 127/74
[2020-04-12] MEDS: Docusate 100mg cap ORAL SCH ×2 (08:28→17:35)
--- NOTE | 2020-04-12 11:26 | General Progress Note ---
Subjective Allergies: Coded Allergies: No Known Allergies (Unverified , 04/10/20) Subjective recurrent fever resolved no abdo pain Objective Last 24 Hour Vital Signs Date Time Temp Pulse Resp B/P (MAP) Pulse Ox O2 Delivery O2 Flow Rate FiO2 04/12/20 04:00 98.7 69 20 125/77 (93) 93 04/12/20 00:00 99.0 92 18 130/61 (84) 96 04/11/20 21:00 Room Air 04/11/20 20:00 99.2 81 18 103/58 (73) 96 04/11/20 16:00 98.4 85 19 103/56 (72) 95 04/11/20 12:00 99.9 04/11/20 12:00 99.9 90 18 100/48 (65) 100 Intake and Output 04/11/20 04/12/20 19:00 07:00 Intake Total 1390.0 ml 377.5 ml Output Total 500 ml Balance 1390.0 ml -122.5 ml Intake Oral 480 ml 240 ml IV Total 910.0 ml 137.5 ml Output Urine Total 500 ml # Voids 2 2 Height (Feet): 5 Height (Inches): 6.00 Weight (Pounds): 180 General Appearance: alert EENT: PERRL/EOMI Neck: supple Cardiovascular: regular rhythm Respiratory/Chest: lungs clear Abdomen: non tender, soft Extremities: non-tender Assessment/Plan Status: doing well Assessment/Plan: 1 ugi bleeding stable no change hh, gi is on the case 2 rec fever cs negative 3 cad 4 htn monitor fever id and gi on the case dc home if gi clearence prescription give for ppi fu pcp out pt regular diet Akbar Thomas MD Apr 12, 2020 11:26
--- NOTE | 2020-04-12 11:49 | Infectious Diseases Prog Note ---
Assessment/Plan Assessment/Plan antibiotics : zosyn A 1. UTI 2. Right-sided nephrolithiasis. 3. History of hepatitis C. P 1. continue zosyn 2. will follow up cultures Subjective ROS Limited/Unobtainable: Yes Allergies: Coded Allergies: No Known Allergies (Unverified , 04/10/20) Objective Last 24 Hour Vital Signs Date Time Temp Pulse Resp B/P (MAP) Pulse Ox O2 Delivery O2 Flow Rate FiO2 04/12/20 04:00 98.7 69 20 125/77 (93) 93 04/12/20 00:00 99.0 92 18 130/61 (84) 96 04/11/20 21:00 Room Air 04/11/20 20:00 99.2 81 18 103/58 (73) 96 04/11/20 16:00 98.4 85 19 103/56 (72) 95 04/11/20 12:00 99.9 04/11/20 12:00 99.9 90 18 100/48 (65) 100 Height (Feet): 5 Height (Inches): 6.00 Weight (Pounds): 180 Respiratory/Chest: lungs clear Cardiovascular: normal rate, regular rhythm, no gallop/murmur Abdomen: soft, non tender Extremities: no edema Microbiology Date/Time Source Procedure Growth Status 04/10/20 17:50 Rectum Received 04/10/20 17:50 Nasal Not Otherwise Specified MRSA Culture - Final NO METHICILLIN RESISTANT STAPH AUREUS... Complete 04/10/20 03:12 Urine,Clean Catch Urine Culture - Final Mixed Urogenital Contaminants Complete Current Medications Medications (Trade) Dose Ordered Sig/Jessie Route PRN Reason Start Time Stop Time Status Last Admin Dose Admin Acetaminophen (Tylenol) 650 mg Q4H PRN ORAL Temp >100.4 04/11/20 09:00 05/11/20 08:59 04/11/20 09:14 Docusate Sodium (Colace) 100 mg TWICE A DAY ORAL 04/11/20 18:00 05/11/20 17:59 04/12/20 08:28 Linaclotide (Linzess) 290 mcg BEFORE BREAKFAST ORAL 04/13/20 06:30 07/12/20 06:29 Morphine Sulfate (Morphine Sulfate) 4 mg Q4H PRN IVP For Pain 04/10/20 10:30 04/17/20 10:29 04/12/20 05:53 Ondansetron HCl (Zofran) 4 mg Q4H PRN IVP Nausea & Vomiting 04/10/20 10:30 05/10/20 10:29 04/10/20 18:13 Pantoprazole (Protonix) 40 mg EVERY 12 HOURS ORAL 04/10/20 21:00 05/10/20 20:59 04/12/20 08:27 Piperacillin Sod/ Tazobactam Sod 3.375 gm/Sodium Chloride 110 ml @ 27.5 mls/hr Q8H IVPB 04/11/20 12:00 04/18/20 11:59 04/12/20 04:17 Polyethylene Glycol (Miralax) 17 gm BEDTIME ORAL 04/11/20 21:00 05/11/20 20:59 04/11/20 20:52 Sodium Chloride 1,000 ml @ 100 mls/hr Q10H IV 04/10/20 11:00 05/10/20 10:59 04/12/20 03:34 Wilrfid Carvajal MD Apr 12, 2020 11:49
[2020-04-12 12:00] VITALS: BP 112/75
[2020-04-12 16:00] VITALS: BP 101/65
--- NOTE | 2020-04-12 16:05 | NUR ---
PLANT PROPAGATOR NOTE RANDELL received a call from DON Llamas [phone] [email or web address], sharing his concern that the [facility] will not able to provide sufficient assistance to pt. Farhad reports [facility] until pt having the alternative housing. RANDELL met w/ pt and obtained information. Pt is currently staying at [facility] at [address] [place] [address] for two weeks. Pt has been homeless for 2 years. Pt receives SSI $988/mo, and has income available for this month. PT denies having hx of substance abuse/mental illness/tobacco use. PT uses a wheelchair to ambulate. [facility] the [facility]. Pt reports she spoke w/ her child support case officer from [employer], [employer] [phone] that she can stay at the [facility] until Josie finds alternative housing for pt. PT is requesting for a new wheelchair. RANDELL relayed information to assigned , will check if the insurance authorizes. RANDELL will F/U w/ [employer] [phone] once DC date is determined. Addendum: 04/12/20 at 1621 by MESSI MEJIAS PT has one son and one daughter living in [place], [place]. Pt does not recall their contact numbers.
--- NOTE | 2020-04-12 16:08 | NUR ---
NURSE NOTES: I communicated MD Geller, if patient is cleared for discharge from GI stand point; also painti is [email or web address] of abdominal pain and wanna see the GI doctor; waiting for order.
--- NOTE | 2020-04-12 17:07 | NUR ---
CASE MANAGEMENT:REVIEW SI;UPPER GI BLEED. HTN. 99.0 92 20 130/61 93% ON RA IS;LINZESS PO QD ZOSYN IV Q8 PROTONIX PO Q12 IVF NS @ 100 ML/HR MORPHINE SULFATE IV Q4 PRN MED SURG STATUS DCP;PATIENT IS FROM [facility] PLAN; DC PENDING GI CLEARANCE
--- NOTE | 2020-04-12 18:29 | NUR ---
NURSE NOTES: MD Geller cleared patient for discharge;
--- NOTE | 2020-04-12 19:12 | NUR ---
HAND-OFF: Report given to HARJIT Mcleod.
--- NOTE | 2020-04-12 19:30 | NUR ---
NURSE NOTES: Received patient in no apparent distress. A&OX3. IV site patent and intact. Bed in lowest position. Call light within reach. Will continue to monitor.
[2020-04-12 20:00] VITALS: BP 103/69
[2020-04-12] MEDS: Miralax 17gm pkt ORAL SCH (20:25)
[2020-04-13] VITALS: BP 118/71
[2020-04-13] MEDS: Piperacillin/Tazobactam 3.375 GM in NS 110 ML IVPB SCH ×2 (03:20→12:29)
[2020-04-13] MEDS: Morphine Sulfate 4mg/ml Inj (IV USE ONLY) IVP PRN ×2 (03:21→12:29)
[2020-04-13 04:00] VITALS: BP 103/69
[2020-04-13 07:06] LABS: BASOPHILS % (AUTO) 1.5 % (0.0-2.0); EOSINOPHILS % (AUTO) 2.2 % (0.0-3.0); HEMATOCRIT 38.5 % (37.0-47.0); HEMOGLOBIN 14.1 G/DL (12.0-16.0); LYMPHOCYTES % (AUTO) 40.3 % (20.0-45.0); MEAN CORPUSCULAR VOLUME 83 FL (80-99); MONOCYTES % (AUTO) 9.5 % (1.0-10.0); NEUTROPHILS % (AUTO) 46.7 % (45.0-75.0); PLATELET COUNT 177 K/UL (150-450); RED BLOOD COUNT 4.63 M/UL (4.20-5.40); RED CELL DISTRIBUTION WIDTH 13.5 % (11.6-14.8); WHITE BLOOD COUNT 3.6 K/UL (4.8-10.8)
--- NOTE | 2020-04-13 07:30 | NUR ---
NURSE HAND-OFF: Important Events on Shift: Patient Status: Diet: regular Pending Orders: Pending Results/Labs: OB stool Pending MD notification: Latest Vital Signs: Temperature 97.5 , Pulse 69 , B/P 103 /69 , Respiratory Rate 20 , O2 SAT 95 , Room Air, O2 Flow Rate . Vital Sign Comment: Latest Meade Fall Score: 80 Fall Risk: High Risk Safety Measures: Call light Within Reach, Bed Alarm Zone 1, Side Rails Side Rails x2, Bed position Low and Locked. Fall Precautions: Yellow Socks Yellow Gown Door Sign Patient Fall Education Report given to Jolene LOMBARDI.
[2020-04-13 07:43] LABS: ALANINE AMINOTRANSFERASE 48 U/L (12-78); ALBUMIN 2.7 G/DL (3.4-5.0); ALBUMIN/GLOBULIN RATIO 0.7 (1.0-2.7); ALKALINE PHOSPHATASE 68 U/L (46-116); ANION GAP 2 mmol/L (5-15); ASPARTATE AMINO TRANSFERASE 39 U/L (15-37); BILIRUBIN,TOTAL 0.3 MG/DL (0.2-1.0); BLOOD UREA NITROGEN 12 mg/dL (7-18); CALCIUM 8.4 MG/DL (8.5-10.1); CARBON DIOXIDE 32 MMOL/L (21-32); CHLORIDE 106 MMOL/L (98-107); CREATININE 0.8 MG/DL (0.55-1.30); POTASSIUM 4.7 MMOL/L (3.5-5.1); SODIUM 140 MMOL/L (136-145)
[2020-04-13 08:00] VITALS: BP 104/62
--- NOTE | 2020-04-13 08:08 | NUR ---
NURSE NOTES: Patient awake, alert x4; on room air, no sing of distress and shortness of breath; no sing of chest pain; IV Left Wrist NS 100cc running; Right EJ IV flushes well; side rails up x2, breaks engaged, bed at lowest position; call light within reach; will keep monitoring.
[2020-04-13] MEDS: Docusate 100mg cap ORAL SCH (08:44)
--- NOTE | 2020-04-13 08:54 | NUR ---
DISCHARGE PLANNING RANDELL spoke w/ pt's CM Josie [employer] [phone], confirmed pt can return to the [facility] upon DC. Josie will arrange the transportation. PLEASE CALL [employer]IE [employer] [phone] FOR TRANSPORTATION. [facility] [address], [place] [address] Addendum: 04/13/20 at 1337 by MESSI MEJIAS RANDELL left a vm to Josie Painting [phone] for call back as pt is ready to be discharged.
--- NOTE | 2020-04-13 09:54 | General Progress Note ---
Subjective ROS Limited/Unobtainable: No Allergies: Coded Allergies: No Known Allergies (Unverified , 04/10/20) Objective Last 24 Hour Vital Signs Date Time Temp Pulse Resp B/P (MAP) Pulse Ox O2 Delivery O2 Flow Rate FiO2 04/13/20 08:00 98.3 63 19 104/62 (76) 96 04/13/20 04:00 97.5 69 20 103/69 (80) 95 04/13/20 00:00 97.5 64 19 118/71 (87) 95 04/12/20 21:00 Room Air 04/12/20 20:00 97.5 69 20 103/69 (80) 95 04/12/20 16:00 97.3 67 20 101/65 (77) 94 04/12/20 12:18 98.7 04/12/20 12:00 98.4 69 20 112/75 (87) 93 Intake and Output 04/12/20 04/13/20 19:00 07:00 Intake Total 2085.0 ml 1532.5 ml Output Total 1100 ml Balance 2085.0 ml 432.5 ml Intake Oral 720 ml 240 ml IV Total 1365.0 ml 1292.5 ml Output Urine Total 1100 ml # Voids 5 Laboratory Tests 04/13/20 06:05: White Blood Count 3.6L, Red Blood Count 4.63, Hemoglobin 14.1, Hematocrit 38.5, Mean Corpuscular Volume 83, Mean Corpuscular Hemoglobin 30.4, Mean Corpuscular Hemoglobin Concent 36.5H, Red Cell Distribution Width 13.5, Platelet Count 177, Mean Platelet Volume 7.2, Neutrophils (%) (Auto) 46.7, Lymphocytes (%) (Auto) 40.3, Monocytes (%) (Auto) 9.5, Eosinophils (%) (Auto) 2.2, Basophils (%) (Auto) 1.5, Sodium Level 140, Potassium Level 4.7, Chloride Level 106, Carbon Dioxide Level 32, Anion Gap 2L, Blood Urea Nitrogen 12, Creatinine 0.8, Estimat Glomerular Filtration Rate > 60, Glucose Level 89, Calcium Level 8.4L, Total Bilirubin 0.3, Aspartate Amino Transf (AST/SGOT) 39H, Alanine Aminotransferase (ALT/SGPT) 48, Alkaline Phosphatase 68, Total Protein 6.6, Albumin 2.7L, Globulin 3.9, Albumin/Globulin Ratio 0.7L Height (Feet): 5 Height (Inches): 6.00 Weight (Pounds): 180 General Appearance: no apparent distress EENT: normal ENT inspection Neck: supple Cardiovascular: normal rate Respiratory/Chest: decreased breath sounds Abdomen: normal bowel sounds, non tender, soft Extremities: non-tender Assessment/Plan Status: doing well Assessment/Plan: h/o of hep C with normal LFTS c/o GI bleed for 3 days with HGB of 14!! ppi po bid stool ob on cardiac diet EGD if needed add kay roca ID El Perea MD Apr 13, 2020 09:54
--- NOTE | 2020-04-13 11:51 | General Progress Note ---
Subjective Allergies: Coded Allergies: No Known Allergies (Unverified , 04/10/20) Subjective recurrent fever resolved no abdo pain doing better Objective Last 24 Hour Vital Signs Date Time Temp Pulse Resp B/P (MAP) Pulse Ox O2 Delivery O2 Flow Rate FiO2 04/13/20 09:00 Room Air 04/13/20 08:00 98.3 63 19 104/62 (76) 96 04/13/20 04:00 97.5 69 20 103/69 (80) 95 04/13/20 00:00 97.5 64 19 118/71 (87) 95 04/12/20 21:00 Room Air 04/12/20 20:00 97.5 69 20 103/69 (80) 95 04/12/20 16:00 97.3 67 20 101/65 (77) 94 04/12/20 12:18 98.7 04/12/20 12:00 98.4 69 20 112/75 (87) 93 Intake and Output 04/12/20 04/13/20 19:00 07:00 Intake Total 2085.0 ml 1632.5 ml Output Total 1100 ml Balance 2085.0 ml 532.5 ml Intake Oral 720 ml 240 ml IV Total 1365.0 ml 1392.5 ml Output Urine Total 1100 ml # Voids 5 Laboratory Tests 04/13/20 06:05: White Blood Count 3.6L, Red Blood Count 4.63, Hemoglobin 14.1, Hematocrit 38.5, Mean Corpuscular Volume 83, Mean Corpuscular Hemoglobin 30.4, Mean Corpuscular Hemoglobin Concent 36.5H, Red Cell Distribution Width 13.5, Platelet Count 177, Mean Platelet Volume 7.2, Neutrophils (%) (Auto) 46.7, Lymphocytes (%) (Auto) 40.3, Monocytes (%) (Auto) 9.5, Eosinophils (%) (Auto) 2.2, Basophils (%) (Auto) 1.5, Sodium Level 140, Potassium Level 4.7, Chloride Level 106, Carbon Dioxide Level 32, Anion Gap 2L, Blood Urea Nitrogen 12, Creatinine 0.8, Estimat Glomerular Filtration Rate > 60, Glucose Level 89, Calcium Level 8.4L, Total Bilirubin 0.3, Aspartate Amino Transf (AST/SGOT) 39H, Alanine Aminotransferase (ALT/SGPT) 48, Alkaline Phosphatase 68, Total Protein 6.6, Albumin 2.7L, Globulin 3.9, Albumin/Globulin Ratio 0.7L Height (Feet): 5 Height (Inches): 6.00 Weight (Pounds): 180 General Appearance: alert EENT: PERRL/EOMI Neck: supple Cardiovascular: regular rhythm Respiratory/Chest: lungs clear Abdomen: non tender, soft, no mass Assessment/Plan Status: doing well Assessment/Plan: 1 ugi bleeding stable no change hh, gi is on the case 2 rec fever cs negative 3 cad 4 htn monitor fever id and gi on the case dc home if gi clearence prescription give for ppi fu pcp out pt regular diet dc to nursing home aware Akbar Thomas MD Apr 13, 2020 11:51
[2020-04-13 12:00] VITALS: BP 115/69
--- NOTE | 2020-04-13 12:49 | Infectious Diseases Prog Note ---
Assessment/Plan Assessment/Plan A 1. UTI 2. Right-sided nephrolithiasis. 3. History of hepatitis C. P 1. continue Zosyn 2. will follow up cultures Subjective ROS Limited/Unobtainable: No Constitutional: Reports: no symptoms Respiratory: Reports: productive cough Gastrointestinal/Abdominal: Reports: other - epigastric pain with coughing Genitourinary: Reports: dysuria Allergies: Coded Allergies: No Known Allergies (Unverified , 04/10/20) Objective Last 24 Hour Vital Signs Date Time Temp Pulse Resp B/P (MAP) Pulse Ox O2 Delivery O2 Flow Rate FiO2 04/13/20 12:00 98.5 70 18 115/69 (84) 97 04/13/20 09:00 Room Air 04/13/20 08:00 98.3 63 19 104/62 (76) 96 04/13/20 04:00 97.5 69 20 103/69 (80) 95 04/13/20 00:00 97.5 64 19 118/71 (87) 95 04/12/20 21:00 Room Air 04/12/20 20:00 97.5 69 20 103/69 (80) 95 04/12/20 16:00 97.3 67 20 101/65 (77) 94 Height (Feet): 5 Height (Inches): 6.00 Weight (Pounds): 180 General Appearance: no acute distress HEENT: mucous membranes moist Respiratory/Chest: lungs clear Cardiovascular: normal rate Abdomen: soft, non tender Extremities: no edema Neurologic/Psychiatric: alert, oriented x 3, responsive Microbiology Date/Time Source Procedure Growth Status 04/10/20 17:50 Rectum - Final NO CARBAPENEM-RESISTANT ENTEROBACTERI... Complete 04/10/20 17:50 Rectum VRE Culture - Final NO VANCOMYCIN RESISTANT ENTEROCOCCUS ... Complete 04/10/20 17:50 Nasal Not Otherwise Specified MRSA Culture - Final NO METHICILLIN RESISTANT STAPH AUREUS... Complete Laboratory Tests Test 04/13/20 06:05 White Blood Count 3.6 K/UL (4.8-10.8) L Red Blood Count 4.63 M/UL (4.20-5.40) Hemoglobin 14.1 G/DL (12.0-16.0) Hematocrit 38.5 % (37.0-47.0) Mean Corpuscular Volume 83 FL (80-99) Mean Corpuscular Hemoglobin 30.4 PG (27.0-31.0) Mean Corpuscular Hemoglobin Concent 36.5 G/DL (32.0-36.0) H Red Cell Distribution Width 13.5 % (11.6-14.8) Platelet Count 177 K/UL (150-450) Mean Platelet Volume 7.2 FL (6.5-10.1) Neutrophils (%) (Auto) 46.7 % (45.0-75.0) Lymphocytes (%) (Auto) 40.3 % (20.0-45.0) Monocytes (%) (Auto) 9.5 % (1.0-10.0) Eosinophils (%) (Auto) 2.2 % (0.0-3.0) Basophils (%) (Auto) 1.5 % (0.0-2.0) Sodium Level 140 MMOL/L (136-145) Potassium Level 4.7 MMOL/L (3.5-5.1) Chloride Level 106 MMOL/L (98-107) Carbon Dioxide Level 32 MMOL/L (21-32) Anion Gap 2 mmol/L (5-15) L Blood Urea Nitrogen 12 mg/dL (7-18) Creatinine 0.8 MG/DL (0.55-1.30) Estimat Glomerular Filtration Rate > 60 mL/min (>60) Glucose Level 89 MG/DL (74-106) Calcium Level 8.4 MG/DL (8.5-10.1) L Total Bilirubin 0.3 MG/DL (0.2-1.0) Aspartate Amino Transf (AST/SGOT) 39 U/L (15-37) H Alanine Aminotransferase (ALT/SGPT) 48 U/L (12-78) Alkaline Phosphatase 68 U/L (46-116) Total Protein 6.6 G/DL (6.4-8.2) Albumin 2.7 G/DL (3.4-5.0) L Globulin 3.9 g/dL Albumin/Globulin Ratio 0.7 (1.0-2.7) L Current Medications Medications (Trade) Dose Ordered Sig/Jessie Route PRN Reason Start Time Stop Time Status Last Admin Dose Admin Acetaminophen (Tylenol) 650 mg Q4H PRN ORAL Temp >100.4 04/11/20 09:00 05/11/20 08:59 04/11/20 09:14 Docusate Sodium (Colace) 100 mg TWICE A DAY ORAL 04/11/20 18:00 05/11/20 17:59 04/13/20 08:44 Linaclotide (Linzess) 290 mcg BEFORE BREAKFAST ORAL 04/13/20 06:30 07/12/20 06:29 04/13/20 05:52 Morphine Sulfate (Morphine Sulfate) 4 mg Q4H PRN IVP For Pain 04/10/20 10:30 04/17/20 10:29 04/13/20 12:29 Ondansetron HCl (Zofran) 4 mg Q4H PRN IVP Nausea & Vomiting 04/10/20 10:30 05/10/20 10:29 04/13/20 00:28 Pantoprazole (Protonix) 40 mg EVERY 12 HOURS ORAL 04/10/20 21:00 05/10/20 20:59 04/13/20 08:44 Piperacillin Sod/ Tazobactam Sod 3.375 gm/Sodium Chloride 110 ml @ 27.5 mls/hr Q8H IVPB 04/11/20 12:00 04/18/20 11:59 04/13/20 12:29 Polyethylene Glycol (Miralax) 17 gm BEDTIME ORAL 04/11/20 21:00 05/11/20 20:59 04/12/20 20:25 Sodium Chloride 1,000 ml @ 100 mls/hr Q10H IV 04/10/20 11:00 05/10/20 10:59 04/13/20 08:45 Asif Preciado MD Apr 13, 2020 12:49
--- NOTE | 2020-04-13 14:45 | NUR ---
DISCHARGE NOTE: [facility] condition by [facility] (Presious coordinator of transportation), pt ate her lunch, clothes provided (jacket, pants, sweater) from hospital closet. Pt has an ambulation difficulty , clerks from [facility] will [facility] (according to DANIE Silverman). Belongings checked and both IV line were removed by primary nurse Jolene (no infection, or inflammation noted).. Homeless Discharge packet done.
--- NOTE | 2020-04-17 12:11 | Discharge Summary ---
Discharge Summary Discharge Summary _ DATE OF ADMISSION: 04/10/2020 DATE OF DISCHARGE: 04/13/2020 DISCHARGED BY: Dr. Thomas REASON FOR ADMISSION: 60 years old female with past medical history of hepatitis C( from prior blood transfusion), anemia ( last blood transfusion in 1994), presented by ambulance with a chief complaint of coffee-ground emesis for 3-days. [facility] and had been telling the supervisor network control operators that she did not feel good for the last 3 days. She also endorsed dark bloody stool. She denied trauma. No recent endoscopy or colonoscopy. No use of blood thinner. No back pain. No cough or hemoptysis. No dysuria. Upon evaluation vital signs were stable. Laboratory work-up revealed stable hemoglobin and hematocrit, no leukocytosis. Stable electrolytes and renal parameters. Troponin negative. EKG revealed sinus rhythm, no acute ischemic changes . Stable coagulation profile. Urinalysis revealed pyuria. CT of the abdomen and pelvis revealed moderate hiatal hernia. Multiple small nonobstructive right renal calculi. Diverticulosis without evidence of acute diverticulitis. No small bowel obstruction. Normal appendix. Hyperdensity within the gastric lumen , possibly representing hyperdense and ingested contents , however blood products not excluded , given history of hematemesis. Patient admitted with GI bleeding ,history of hepatitis C ,anemia ,hematemesis , CONSULTANTS: ID specialist Dr. Carvajal GI specialist Dr. Geller [facility] COURSE: Patient admitted to medical surgical floor and started on Protonix and Sandostatin drips. Pain management was addressed as needed. Hemoglobin and hematocrit were closely monitored and remained stable. Hepatitis panel was positive for hepatitis C . LFT remained stable. Bowel regimen instituted : patient started on Linzess for chronic constipation. Patient slowly started on diet , and was able to tolerate it. Antiemetic were on board as needed. GI specialist recommended EGD if needed ,which can be done as outpatient ,given stable hemoglobin and hematocrit. Protonix drip discontinued, and changed to Protonix twice a day. Patient demonstrated recurrent fevers. Patient received antibiotic for UTI. Blood culture were negative. No further hematemesis ; no abdominal pain . Hemoglobin and hematocrit remained stable. Supportive care provided. Patient clinically stabilized and was ready for discharge. FINAL DIAGNOSES: Upper GI bleeding UTI Right-sided nephrolithiasis Abdominal pain History of hep C DISCHARGE MEDICATIONS: See Medication Reconciliation list. DISCHARGE INSTRUCTIONS: Patient was discharged home. Follow-up with a primary care provider in 1 to 2 weeks. I have been assigned to dictate discharge summary for this account. I was not involved in the patient's management. Loida Goss NP Apr 17, 2020 12:11
== END 2020-04-13 14:25 | disposition home or self-care (01) | DRG 253 ==
LOC: EDBD 01:10 → EMR 01:29 → 2E 01:50 → EDBEDREQ 05:06 → 4E 17:37
DX: K92.2 Gastrointestinal hemorrhage, unspecified (principal); M19.90 Unspecified osteoarthritis, unspecified site; Z86.19 Personal history of other infectious and parasitic diseases; Z87.891 Personal history of nicotine dependence; Z59.0 Homelessness; K44.9 Diaphragmatic hernia without obstruction or gangrene; N39.0 Urinary tract infection, site not specified; N20.0 Calculus of kidney; R50.9 Fever, unspecified; I25.10 Atherosclerotic heart disease of native coronary artery without angina pectoris
CPT/HCPCS: 36415; 73502; 74176; 80053; 81003; 82150; 83690; 83930; 84484; 85025; 85610; 85730; 86705; 86709; 86803; 86850; 86900; 86901; 86920; 87081; 87086; 87340; 93005; 96361; 96365; 96375; 99285; G0480; J2405; J7030